=== PATIENT | female | born 1960 | race Two or more races ===

== ENCOUNTER 2016-04-01 21:56 | Inpatient (IN) | payer MEDICAID ==
[~2016-04-01] VITALS: Ht 154.9 cm; Wt 86.8 kg
[2016-04-01] MEDS ORDERED: cloNIDine HCL 0.1 MG TAB PO ONE (22:15)
[2016-04-01 23:05] LABS: Basophils # (auto) 0 uL; Basophils % (auto) 0.8 % (0.0-2.0); DEFINITIVE VIEW TRANSMISSION; Eosinophils # (auto) 0 uL; Eosinophils % (auto) 0.7 % (0.0-7.0); Hematocrit 35.6 % (36.0-46.0); Hemoglobin 11.7 g/dL (12.2-16.2); Lymphocytes # (auto) 1.1 uL; Lymphocytes % (auto) 19.8 % (10.0-50.0); Mean Corpuscular Hemoglobin 30.8 pg (28.0-32.0); Mean Corpuscular Hgb Conc. 32.9 g/dL (32.0-36.0); Mean Corpuscular Volume 93.5 fL (80.0-100.0); Mean Platelet Volume 9.3 fL (7.4-10.4); Monocytes # (auto) 0.7 uL; Monocytes % (auto) 13.9 % (0.0-12.0); Neutrophils # (auto) 3.4 uL; Neutrophils % (auto) 64.8 % (37.0-80.0); Platelet Count (auto) 61 10^3/uL (140-450); Red Cell Distribution Width 15.9 % (11.6-16.0); White Blood Cell 5.3 10^3/uL (4.4-10.8)
[2016-04-01 23:24] LABS: Partial Thromboplastin Time 26.4 sec (22.64-33.71); Prothrombin Time 11.9 sec (9.37-12.3)
[2016-04-01 23:30] LABS: Burr Cells MODERATE; Ovalocytes FEW; Platelet Estimate Decreased
[2016-04-01 23:31] LABS: INR 1.16 (0.9-1.15)
[2016-04-01 23:33] LABS: Albumin 3.1 g/dL (3.4-5.0); BUN/Creatinine Ratio 11.1; Magnesium 1.8 mg/dL (1.6-2.6)
[2016-04-01 23:37] LABS: Bilirubin, Total 0.9 mg/dL (0.2-1.0); Total Protein 7.1 g/dL (6.4-8.2)
[2016-04-01 23:41] LABS: Potassium 2.9 mmol/L (3.5-5.1)
[2016-04-02] VITALS (7 sets, daily range): BP systolic 121–140; BP diastolic 72–87
[2016-04-02] MEDS ORDERED: cloNIDine HCL 0.1 MG TAB ONE (00:41)
[2016-04-02] MEDS ORDERED: POTASSIUM CHL 20 Meq TABLET PO ONE (00:45)
[2016-04-02] MEDS ORDERED: ACETAMINOPHEN 325 MG TAB PO PRN (05:30)
[2016-04-02] MEDS ORDERED: ONDANSETRON HCL 4 MG/2 ML VIAL IV PRN (05:30)
[2016-04-02] MEDS ORDERED: TEMAZEPAM 15 MG CAP PO PRN (05:30)
[2016-04-02] MEDS ORDERED: HYDROcodone-ACET 5/325MG TAB PO PRN (05:30)
[2016-04-02] MEDS ORDERED: ENOXAPARIN SOD 100 MG/1 ML SYRINGE SC ONE (05:34)
[2016-04-02] MEDS ORDERED: ENOXAPARIN SOD 80 MG/0.8ML SYRINGE SC ONE (06:30)
[2016-04-02] MEDS: FAMOTIDINE 20 MG TAB PO SCH ×2 (10:51→22:00)
[2016-04-02] MEDS: amLODIPine BESYLATE 5 MG TAB PO SCH (10:51)
[2016-04-02] MEDS: BENAZEPRIL HCL 10 MG TAB PO SCH (10:51)
[2016-04-02] MEDS: METOPROLOL SUCCINATE XL 50 MG TAB PO SCH (10:51)
[2016-04-02] MEDS ORDERED: METO-158 PO (13:25)
[2016-04-02] MEDS ORDERED: AMLO5TAB2 PO (13:25)
[2016-04-02] MEDS ORDERED: SIMV10TA84 PO (13:25)
[2016-04-02] MEDS ORDERED: ESCI10TA53 PO (13:25)
[2016-04-02] MEDS ORDERED: BENA20TA4 PO (13:25)
[2016-04-02] MEDS ORDERED: IOHEXOL 350 MG/ML 100ML IJ ONE ×2 (14:31→17:49)
[2016-04-02] MEDS: ASPirin 81 mg TAB PO SCH (21:04)
[2016-04-02] MEDS ORDERED: PATIENTS OWN MEDICATION (simvastatin 20 MG) PO SCH ×2 (22:00)
[2016-04-02] MEDS ORDERED: ATORVASTATIN 20 MG TAB PO SCH (22:00)
[2016-04-02] MEDS ORDERED: PRAVASTATIN SODIUM 20 MG TAB PO SCH (22:00)
[2016-04-03 03:45] VITALS: BP 140/87
[2016-04-03 05:50] VITALS: BP 134/64
[2016-04-03 06:37] LABS: Basophils # (auto) 0 uL; Basophils % (auto) 0.7 % (0.0-2.0); Eosinophils # (auto) 0.1 uL; Eosinophils % (auto) 2.9 % (0.0-7.0); Hematocrit 35.9 % (36.0-46.0); Hemoglobin 11.6 g/dL (12.2-16.2); Lymphocytes # (auto) 1.1 uL; Lymphocytes % (auto) 27.5 % (10.0-50.0); Mean Corpuscular Hemoglobin 30.5 pg (28.0-32.0); Mean Corpuscular Hgb Conc. 32.4 g/dL (32.0-36.0); Mean Corpuscular Volume 94.1 fL (80.0-100.0); Mean Platelet Volume 9.8 fL (7.4-10.4); Monocytes # (auto) 0.6 uL; Monocytes % (auto) 15.6 % (0.0-12.0); Neutrophils # (auto) 2.2 uL; Neutrophils % (auto) 53.3 % (37.0-80.0); Platelet Count (auto) 67 10^3/uL (140-450); Red Cell Distribution Width 15.7 % (11.6-16.0)
[2016-04-03 08:00] VITALS: BP 140/88
[2016-04-03 08:53] VITALS: BP 138/82
[2016-04-03 09:06] LABS: Albumin 2.8 g/dL (3.4-5.0); Bilirubin, Total 1.2 mg/dL (0.2-1.0); Calcium 8.4 mg/dL (8.5-10.1); Magnesium 2.1 mg/dL (1.6-2.6); Potassium 3.4 mmol/L (3.5-5.1); Total Protein 6.5 g/dL (6.4-8.2)
[2016-04-03] MEDS: FAMOTIDINE 20 MG TAB PO SCH (10:00)
[2016-04-03] MEDS ORDERED: ENOXAPARIN SOD 40 MG/0.4 ML SYRINGE SC SCH (10:00)
[2016-04-03] MEDS: ASPirin 81 mg TAB PO SCH (10:17)
[2016-04-03] MEDS: METOPROLOL SUCCINATE XL 50 MG TAB PO SCH (10:18)
[2016-04-03] MEDS: amLODIPine BESYLATE 5 MG TAB PO SCH (10:18)
[2016-04-03] MEDS: BENAZEPRIL HCL 10 MG TAB PO SCH (10:18)
[2016-04-03] MEDS ORDERED: ASPI81CH43 PO (11:33)
[2016-04-03] MEDS ORDERED: POTASSIUM CHL 20 Meq TABLET PO ONE (11:45)
[2016-04-03 12:30] VITALS: BP 140/88
[2016-04-03 17:04] VITALS: BP 138/88
== END 2016-04-03 17:37 | disposition left against medical advice (07) | DRG 47 ==
LOC: ER 22:01 → OVERFLOW 22:02 → EAST 04-02 06:09
PROVIDERS: ADMIT Nurse Practitioner; ATTEND Internal Medicine
PROC: 5A09357 Assistance with Respiratory Ventilation, Less than 24 Consecutive Hours, Continuous Positive Airway Pressure (ICD-10-PCS; principal; 2016-04-02)
DX: G45.9 Transient cerebral ischemic attack, unspecified (principal); D69.6 Thrombocytopenia, unspecified; K74.60 Unspecified cirrhosis of liver; E78.5 Hyperlipidemia, unspecified; I10 Essential (primary) hypertension; Z53.21 Procedure and treatment not carried out due to patient leaving prior to being seen by health care provider; E87.6 Hypokalemia; F17.200 Nicotine dependence, unspecified, uncomplicated; Z82.49 Family history of ischemic heart disease and other diseases of the circulatory system; Z83.3 Family history of diabetes mellitus; Z84.89 Family history of other specified conditions; Z79.899 Other long term (current) drug therapy; Z91.14 Patient's other noncompliance with medication regimen; Z71.6 Tobacco abuse counseling
CPT/HCPCS: 36415; 70450; 70545; 70551; 71020; 71275; 80053; 80061; 83036; 83090; 83735; 84132; 84484; 85025; 85379; 85610; 85730; 93005; 93886; 94660

== ENCOUNTER 2018-02-08 18:46 | Inpatient (IN) | payer MEDICAID ==
[~2018-02-08] VITALS: Ht 154.9 cm; Wt 69.0 kg
[2018-02-08] MEDS ORDERED: ALBUTEROL SULF 2.5 MG/0.5ML(0.5%) NEB SOLN HHN ONE (20:00)
[2018-02-08] MEDS ORDERED: methylPREDNISolone SOD SUCC 125 MG/2 ML VL IV ONE (20:00)
[2018-02-08] MEDS ORDERED: IPRATROPIUM BROM 0.5 MG/2.5ML INH SOL HHN ONE (20:00)
[2018-02-08] MEDS ORDERED: cloNIDine HCL 0.1 MG TAB PO PRN (21:45)
[2018-02-08] MEDS ORDERED: ONDANSETRON HCL 4 MG/2 ML VIAL IV PRN (21:45)
[2018-02-08 22:08] LABS: Basophils # (auto) 0.1 uL; Basophils % (auto) 1.3 % (0.0-2.0); Eosinophils # (auto) 0.2 uL; Eosinophils % (auto) 2.9 % (0.0-7.0); Hemoglobin 10.6 g/dL (12.2-16.2); Lymphocytes # (auto) 0.8 uL; Lymphocytes % (auto) 14.2 % (10.0-50.0); Mean Corpuscular Hemoglobin 31.2 pg (28.0-32.0); Mean Corpuscular Hgb Conc. 34.1 g/dL (32.0-36.0); Mean Corpuscular Volume 91.3 fL (80.0-100.0); Monocytes # (auto) 0.7 uL; Monocytes % (auto) 13.1 % (0.0-12.0); Neutrophils # (auto) 3.7 uL; Neutrophils % (auto) 68.5 % (37.0-80.0); Platelet Count (auto) 90 10^3/uL (140-450); Red Cell Distribution Width 17.5 % (11.8-14.3); White Blood Cell 5.4 10^3/uL (4.4-10.8)
[2018-02-08 22:21] LABS: Alanine Aminotransferase 30 U/L (13-56); Albumin 2.4 g/dL (3.4-5.0); Anion Gap 3 (5-15); Blood Urea Nitrogen 15 mg/dL (7-18); Calcium 7.8 mg/dL (8.5-10.1); Carbon Dioxide 25 mmol/L (21-32); Chloride 110 mmol/L (98-107); Glucose 113 mg/dL (74-106); Potassium 3.4 mmol/L (3.5-5.1); Sodium 138 mmol/L (136-145)
[2018-02-08] MEDS: FAMOTIDINE 20 MG TAB PO SCH (22:22)
[2018-02-08 22:26] LABS: Alkaline Phosphatase 142 U/L (45-117); Aspartate Aminotransferase 44 U/L (15-37); BUN/Creatinine Ratio 24.2; GFR African American 128 mL/min; GFR Non-African American 105 mL/min; Total Protein 6.4 g/dL (6.4-8.2)
[2018-02-08] MEDS ORDERED: POTASSIUM CHL 20 Meq TABLET PO ONE (22:45)
[2018-02-08] MEDS ORDERED: IOHEXOL 350 MG/ML 100ML IJ ONE (22:50)
[2018-02-08 23:32] VITALS: BP 156/88
--- NOTE | 2018-02-09 02:20 | NUR ---
MS admit from ER ARTUR DIA admitted to tele/MS after SBAR received. Patient oriented to Yasmin Kohli, primary RN, unit, room, bed, and unit policies regarding patient care and visiting hours. Patient weighed by bed scale and encouraged to call if they need something. All questions and concerns addressed, patient verbalized understanding. Note: Patient is awake and alertx4, ambulates independently. Patient sitting up at bedside eating outside food (burrito). Patient is on room air no s/s of distress noted.
[2018-02-09 02:30] VITALS: BP 155/88
[2018-02-09 05:00] VITALS: BP 120/72
[2018-02-09] MEDS ORDERED: cefTRIAXone 1GM/50ML D5W 50 ML IV ONE ×2 (07:30→14:30)
[2018-02-09 09:00] VITALS: BP 137/75
[2018-02-09 09:09] LABS: Urine Bacteria NONE SEEN /hpf (None Seen); Urine Blood Negative /uL (Negative); Urine Mucus FEW (None Seen); Urine WBC 3 /hpf (0 - 5)
[2018-02-09 09:15] LABS: Urine Specific Gravity > 1.050 (1.001-1.035)
[2018-02-09] MEDS: FAMOTIDINE 20 MG TAB PO SCH ×2 (09:52→21:50)
[2018-02-09] MEDS: amLODIPine BESYLATE 5 MG TAB PO SCH (09:53)
--- NOTE | 2018-02-09 10:45 | NUR ---
patient not in room. belongings are in room.
--- NOTE | 2018-02-09 11:30 | NUR ---
ama smoking form signed by patient. states she went down to waiting room
[2018-02-09 13:00] VITALS: BP 156/91
[2018-02-09 17:00] VITALS: BP 154/83
[2018-02-09 18:28] LABS: INR 1.06 (0.9-1.15); Partial Thromboplastin Time 24.2 sec (23.78-33.04); Prothrombin Time 11.3 sec (9.27-12.13)
[2018-02-09] MEDS: ALBUTEROL SULF 2.5 MG/0.5ML(0.5%) NEB SOLN NEB PRN (19:31)
[2018-02-09 22:00] VITALS: BP 148/83
--- NOTE | 2018-02-10 00:30 | NUR ---
Assumed care of patient Pt currently resting in bed with no signs of distress. Bed is locked in the lowest position with the rails up x2 and call light is within reach. Will continue to monitor.
--- NOTE | 2018-02-10 00:30 | NUR ---
CARE ENDORSED TO KEILA RN, ALL QUESTIONS AND CONCERNS ADDRESSED. PATIENT IS RESTING IN BED WITH NO S/S OF DISTRESS NOTED.
[2018-02-10 05:24] VITALS: BP 134/87
[2018-02-10 06:17] LABS: Basophils # (auto) 0.1 uL; Eosinophils # (auto) 0.2 uL; Eosinophils % (auto) 3.1 % (0.0-7.0); Hematocrit 29.6 % (36.0-46.0); Hemoglobin 9.9 g/dL (12.2-16.2); Mean Corpuscular Hemoglobin 31.1 pg (28.0-32.0); Mean Corpuscular Hgb Conc. 33.6 g/dL (32.0-36.0); Mean Corpuscular Volume 92.7 fL (80.0-100.0); Monocytes # (auto) 0.8 uL; Monocytes % (auto) 12.7 % (0.0-12.0); Neutrophils # (auto) 4.2 uL; Neutrophils % (auto) 67.2 % (37.0-80.0); Platelet Count (auto) 100 10^3/uL (140-450); Red Cell Distribution Width 17.5 % (11.8-14.3); White Blood Cell 6.2 10^3/uL (4.4-10.8)
--- NOTE | 2018-02-10 07:43 | NUR ---
OPENING SHIFT NOTE ASSUMED CARE OF PATIENT. PATIENT AWAKE AND ALERT SITTING UP IN BED. NO S/S OF DISTRESS OR SOB NOTED. BED IN LOWEST LOCKED POSITION, CALL LIGHT WITHIN REACH. REVIEWED POC WITH PATIENT AND INSTRUCTED TO CALL FOR ASSIST NEEDED. WILL CONTINUE TO MONITOR.
[2018-02-10] MEDS: ALBUTEROL SULF 2.5 MG/0.5ML(0.5%) NEB SOLN NEB PRN (07:54)
[2018-02-10 09:00] VITALS: BP 134/79
[2018-02-10 09:36] LABS: Albumin 2.2 g/dL (3.4-5.0); Calcium 7.7 mg/dL (8.5-10.1)
[2018-02-10 09:41] LABS: BUN/Creatinine Ratio 34.5; Bilirubin, Total 0.7 mg/dL (0.2-1.0); Total Protein 6.1 g/dL (6.4-8.2)
[2018-02-10] MEDS: FAMOTIDINE 20 MG TAB PO SCH ×2 (10:32→22:31)
[2018-02-10] MEDS: amLODIPine BESYLATE 5 MG TAB PO SCH (10:32)
[2018-02-10] MEDS: cefTRIAXone 1GM/50ML D5W 50 ML IV SCH (10:32)
--- NOTE | 2018-02-10 12:00 | NUR ---
THORACENTESIS DONE IN ULTRASOUND BY DR REDMAN. PT TOLERATED WELL. VSS 125/75-89-16-94%. 1550 ML OF SANGUINOUS FLUID REMOVED AND SENT TO LAB. POST CXR DONE.
[2018-02-10 13:00] VITALS: BP 142/88
[2018-02-10 17:00] VITALS: BP 143/88
--- NOTE | 2018-02-10 19:10 | NUR ---
RT NOTE: PT ASSESSED FOR PRN MED NEB TX, PT ON ROOM AIR SPO2 96%, RR18 HR 108. BS CLEAR. PT DENIES SOB. PT NOTIFIED TO HAVE RT PAGED IF SOB OCCURS.
--- NOTE | 2018-02-10 19:15 | NUR ---
Opening Shift Note Assumed care of patient, awake and alert. No S/S of distress/SOB or pain. Instructed on POC and to call for assist as needed. Pt is currently laying in bed with rails up x2, bed is locked in the lowest position and call light is within reach. 22GA IV in the right hand flushes without discomfort. Will continue to monitor.
--- NOTE | 2018-02-10 19:24 | NUR ---
END OF SHIFT NOTE PATIENT RESTING COMFORTABLY IN BED AT THIS TIME. NO S/S OF DISTRESS OR SOB NOTED. BED IN LOWEST LOCKED POSITION, CALL LIGHT WITHIN REACH. WILL ENDORSE CARE TO NOC RN.
[2018-02-10 21:47] VITALS: BP 141/97
[2018-02-10] MEDS: ENOXAPARIN SOD 80 MG/0.8ML SYRINGE SC SCH (22:32)
[2018-02-11 05:11] VITALS: BP 129/77
--- NOTE | 2018-02-11 07:06 | NUR ---
RT NOTE: PT REFUSED TX. LUNG SOUNDS DIMINISHED T/O. SPO2 97 HR 80 RR 12. PT INSTRUCTED TO INFORM RN OF NEED FOR TX LATER IN SHIFT. Addendum: 02/11/18 at 1001 by AMADOR PICKERING, RT RT PT ON RA
[2018-02-11] MEDS: ALBUTEROL SULF 2.5 MG/0.5ML(0.5%) NEB SOLN NEB PRN (07:15)
--- NOTE | 2018-02-11 07:50 | NUR ---
OPENING SHIFT NOTE ASSUMED CARE OF PATIENT. PATIENT AWAKE AND ALERT SITTING UP IN BED. NO S/S OF DISTRESS NOTED, PATIENT DENIES SOB AT THIS TIME. REVIEWED POC WITH PATIENT AND INSTRUCTED TO CALL FOR ASSIST NEEDED. BED IN LOWEST LOCKED POSITION, CALL LIGHT WITHIN REACH. CONTINUING TO MONITOR.
[2018-02-11 08:27] VITALS: BP 120/73
[2018-02-11] MEDS: cefTRIAXone 1GM/50ML D5W 50 ML IV SCH (09:49)
[2018-02-11] MEDS: amLODIPine BESYLATE 5 MG TAB PO SCH (09:49)
[2018-02-11] MEDS: ENOXAPARIN SOD 80 MG/0.8ML SYRINGE SC SCH ×2 (09:49→22:00)
[2018-02-11] MEDS: FAMOTIDINE 20 MG TAB PO SCH ×2 (09:49→21:57)
[2018-02-11 12:29] VITALS: BP 137/84
[2018-02-11 16:50] VITALS: BP 136/83
--- NOTE | 2018-02-11 18:35 | NUR ---
RT NOTE: PT ASSESSED FOR PRN MED NEB TX, PT ON ROOM AIR SPO2 96%, RR18 HR 84. BS DECREASED. PT DENIES SOB. PT NOTIFIED TO HAVE RT PAGED IF SOB OCCURS.
--- NOTE | 2018-02-11 18:37 | NUR ---
ROOM CHANGE CHANGED ROOMS AT THIS TIME. ALL BELONGINGS MOVED FROM ROOM 221A TO 220B. PATIENT AMBULATED SELF TO 220B AND TOLERATED WELL. CONTINUING TO MONITOR.
--- NOTE | 2018-02-11 18:38 | NUR ---
END OF SHIFT NOTE PATIENT AWAKE AND ALERT SITTING UP IN BED. NO S/S OF DISTRESS OR SOB NOTED. BED IN LOWEST LOCKED POSITION, CALL LIGHT WITHIN REACH. WILL ENDORSE CARE TO NOC RN.
[2018-02-11 22:00] VITALS: BP 119/67
[2018-02-12 03:34] VITALS: BP 119/67
[2018-02-12 05:00] VITALS: BP 144/89
[2018-02-12 06:59] LABS: Basophils # (auto) 0 uL; Basophils % (auto) 0.8 % (0.0-2.0); Eosinophils # (auto) 0.3 uL; Eosinophils % (auto) 8.8 % (0.0-7.0); Hematocrit 29.9 % (36.0-46.0); Hemoglobin 10.1 g/dL (12.2-16.2); Lymphocytes # (auto) 0.6 uL; Lymphocytes % (auto) 16.3 % (10.0-50.0); Mean Corpuscular Hgb Conc. 33.9 g/dL (32.0-36.0); Mean Corpuscular Volume 91.4 fL (80.0-100.0); Monocytes # (auto) 0.6 uL; Monocytes % (auto) 15.3 % (0.0-12.0); Neutrophils # (auto) 2.2 uL; Neutrophils % (auto) 58.8 % (37.0-80.0); Nucleated Red Blood Cells % 0.2 %; Platelet Count (auto) 91 10^3/uL (140-450); Red Blood Cells 3.27 10^6/uL (4.0-5.20); White Blood Cell 3.8 10^3/uL (4.4-10.8)
[2018-02-12 07:47] LABS: Albumin 2.1 g/dL (3.4-5.0); BUN/Creatinine Ratio 29.6; Calcium 7.5 mg/dL (8.5-10.1); Potassium 3.9 mmol/L (3.5-5.1)
[2018-02-12 07:50] LABS: Bilirubin, Total 0.6 mg/dL (0.2-1.0); Total Protein 5.7 g/dL (6.4-8.2)
[2018-02-12 09:00] VITALS: BP 126/85
[2018-02-12] MEDS: cefTRIAXone 1GM/50ML D5W 50 ML IV SCH (09:51)
[2018-02-12] MEDS: amLODIPine BESYLATE 5 MG TAB PO SCH (09:52)
[2018-02-12] MEDS: ENOXAPARIN SOD 80 MG/0.8ML SYRINGE SC SCH (09:52)
[2018-02-12] MEDS: FAMOTIDINE 20 MG TAB PO SCH ×2 (09:52→21:30)
[2018-02-12 13:00] VITALS: BP 113/78
--- NOTE | 2018-02-12 14:45 | NUR ---
Nutrition Assessment Notes please see attached link for complete assessment Est. Needs BW [id number] kcal (23-25 kcal/kgBW), 66-85 gms pro (1.0-1.3 gms/kgBW d/t severe hypoalbuminemia). Will continue to monitor pertinent labs and reassess nutrient need prn Addendum: 02/12/18 at [address] Amended: Links added.
[2018-02-12 17:00] VITALS: BP 144/95
--- NOTE | 2018-02-12 18:30 | NUR ---
Respiratory note: ASSESSED PT FOR PRN MED NEB AT THIS TIME, PT DENIES SOB AT THIS TIME, NO RESP DISTRESS NOTED, NO TX INDICATED, PULSE OX 96% ON RA, HR 95, RR 18, BILATERAL BS CLEAR.
--- NOTE | 2018-02-12 18:59 | NUR ---
END OF SHIFT NOTE PATIENT RESTING COMFORTABLY IN BED. NO S/S OF DISTRESS OR SOB NOTED. BED IN LOWEST LOCKED POSITION, CALL LIGHT WITHIN REACH. WILL ENDORSE CARE TO NOC RN.
--- NOTE | 2018-02-12 19:45 | NUR ---
open note assumed care of pt. upon entering room pt awake and alert. family at bedside. pt denied any pain. no s/s distress noted or expressed. pt updated on plan of care. no further questions or concerns at this time. call light in reach. will continue to monitor.
[2018-02-12 21:24] VITALS: BP 145/89
[2018-02-13 05:00] VITALS: BP 130/71
--- NOTE | 2018-02-13 07:50 | NUR ---
Opening Shift Note Assumed care of patient, awake and alert and oriented x4. No S/S of distress/SOB or pain. Lungs sounds auscultated and noted to be clear bilaterally. Instructed on POC and to call for assist PRN, will continue to monitor for changes.
[2018-02-13 08:27] VITALS: BP 125/57
[2018-02-13] MEDS: cefTRIAXone 1GM/50ML D5W 50 ML IV SCH (09:11)
[2018-02-13] MEDS: FAMOTIDINE 20 MG TAB PO SCH ×2 (09:11→21:38)
[2018-02-13] MEDS: amLODIPine BESYLATE 5 MG TAB PO SCH (09:12)
[2018-02-13 13:00] VITALS: BP 139/74
--- NOTE | 2018-02-13 14:00 | NUR ---
Respiratory note: PRN MEDNEB CHECK. PT IN NO RESPIRATORY DISTRESS. SPO2 ON ROOM AIR 96% HR 100 RR 16 B/S CLEAR. PT AWARE TO CALL RN AND HAVE THEM PAGE RT IF THEY BECOME SOB.
[2018-02-13 16:53] VITALS: BP 118/74
--- NOTE | 2018-02-13 19:00 | NUR ---
Patient care and report handed off to Dangelo ORR.
[2018-02-13] MEDS: ALBUTEROL SULF 2.5 MG/0.5ML(0.5%) NEB SOLN NEB PRN (19:44)
--- NOTE | 2018-02-13 19:56 | NUR ---
OPENING NOTE RECEIVED REPORT FROM DAYSHIFT RN. ASSUMING ROLE OF CARE OF PATIENT AT THIS TIME. PATIENT SHOWING NO SIGN OF DISTRESS OR PAIN BUT PATIENT STATES THAT THEY FEEL SHORT OF BREATH. RT PAGED FOR BREATHING TREATMENT. PATIENT EDUCATED ON PLAN OF CARE FOR THE NIGHT. PATIENT VERBALIZED UNDERSTANDING. BED LOWERED, CALL LIGHT WITHIN REACH, AND PATIENT WILL BE ROUNDED ON EVERY HOUR AND NEEDED.
[2018-02-13 22:00] VITALS: BP 149/77
--- NOTE | 2018-02-13 22:05 | NUR ---
TEMP RECHECKED PATIENT'S TEMPERATURE WAS 100.8. PATIENT IS STABLE AT THIS TIME AND DENYING ANY PAIN AND APPEARS STABLE. PATIENT GIVEN COOLING MEASURES AT THIS TIME. RECHECK ON TEMP SHOWS 99.5. WILL CONTINUE TO MONITOR.
[2018-02-14 05:00] VITALS: BP 104/74
[2018-02-14] MEDS: ALBUTEROL SULF 2.5 MG/0.5ML(0.5%) NEB SOLN NEB PRN (06:50)
--- NOTE | 2018-02-14 07:50 | NUR ---
Received report from night KIRBY Pierson. Patient resting in bed, bed in low pos., locked, rails up x 2
[2018-02-14 09:27] VITALS: BP 114/67
[2018-02-14] MEDS: cefTRIAXone 1GM/50ML D5W 50 ML IV SCH (09:29)
[2018-02-14] MEDS: FAMOTIDINE 20 MG TAB PO SCH ×2 (09:33→21:27)
[2018-02-14] MEDS: amLODIPine BESYLATE 5 MG TAB PO SCH (09:34)
[2018-02-14 13:12] VITALS: BP 117/73
--- NOTE | 2018-02-14 15:26 | NUR ---
ELEVATED TEMP TEMP OF 100.6. CALLED [employer] SUPERINTENDENT AND LEFT MESSAGE ON TELEPHONE OF DR. SAN FOR TYLENOL
[2018-02-14 16:20] VITALS: BP 122/71
--- NOTE | 2018-02-14 16:31 | NUR ---
IV OUTDATED RESTARTED NEW IF TO LEFT FOREARM #22.
[2018-02-14] MEDS ORDERED: ACETAMINOPHEN 325 MG TAB PO PRN (18:30)
--- NOTE | 2018-02-14 19:25 | NUR ---
Shift report given to night KIRBY Pierson. Pt resting in bed with family at bedside. Bed in low position, locked, rails up x 2, call light in reach.
--- NOTE | 2018-02-14 20:00 | NUR ---
OPENING NOTE RECEIVED REPORT FROM DAYSHIFT RN. ASSUMING ROLE OF CARE OF PATIENT AT THIS TIME. PATIENT SHOWING NO SIGN OF DISTRESS, SHORTNESS OF BREATH, AND PATIENT DENIES ANY PAIN AT THIS TIME. PATIENT EDUCATED ON PLAN OF CARE OF FOR THE NIGHT AND PATIENT VERBALIZED UNDERSTANDING. BED LOWERED, CALL LIGHT WITHIN REACH, AND PATIENT WILL BE ROUNDED ON EVERY HOUR AND NEEDED.
--- NOTE | 2018-02-14 21:10 | NUR ---
RT NOTE: PT ASSESSED BY RT @ THIS TIME. PRN TX NOT INDICATED @ THIS TIME. SPO2 95% ON ROOM AIR, HR 100, DIMINISHED BS NOTED. NO SOB OR DISTRESS @ THIS TIME. PT WILL CALL FOR RT IF TX NEEDED.
[2018-02-14 22:00] VITALS: BP 129/84
--- NOTE | 2018-02-14 22:04 | NUR ---
RECEIVED CALL FROM LAB. PER COMPLIANCE CLERK, MD MEDEIROS REQUESTED AN LBI TEST FOR PATIENT. COMPLIANCE CLERK STATED THAT THE TEST WILL BE DONE BUT MUST BE SENT OUT AND RESULTS WILL NOT BE READY UNTIL SATURDAY. WILL ENDORSE TO DAYSHIFT RN.
--- NOTE | 2018-02-14 23:06 | NUR ---
CONTACTED LAB INFORMED LAB THAT MD MEDEIROS WOULD NOT BE BACK UNTIL THE TO RESUME CARE PER MD REPORT. WAS ASKED BY LAB TO LEAVE A NOTE FOR DAYSHIFT AND FOR THE MD SO TO MAKE THEM AWARE OF THE DELAY IN RESULTS. WILL ENDORSE TO DAYSHIFT.
[2018-02-15 03:32] VITALS: BP 129/84
[2018-02-15 05:00] VITALS: BP 100/62
--- NOTE | 2018-02-15 07:25 | NUR ---
Shift report received fromliberty Pierson. Bed in low position, locked, rails up x 2, call light in reach. IV infusing well to left forearm.
[2018-02-15 08:30] VITALS: BP_SYST 115; BP_SYST 127; BP_DIAS 60; BP_DIAS 68
[2018-02-15] MEDS: cefTRIAXone 1GM/50ML D5W 50 ML IV SCH (10:12)
[2018-02-15] MEDS: amLODIPine BESYLATE 5 MG TAB PO SCH (10:12)
[2018-02-15] MEDS: FAMOTIDINE 20 MG TAB PO SCH ×2 (10:12→21:56)
[2018-02-15 12:47] VITALS: BP 134/73
--- NOTE | 2018-02-15 12:56 | NUR ---
Nutrition Follow-up Notes Wt.: 72.9 kg Pt was sleeping with no family by beside. 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 pt with no distress noted currently on hepatic diet with adequate PO of 100% x 5 per RN doc Est. Needs BW [id number] kcal (23-25 kcal/kgBW), 66-85 gms pro (1.0-1.3 gms/kgBW d/t severe hypoalbuminemia). Will continue to monitor pertinent labs and reassess nutrient need prn Labs: CA 7.5 L, ALB 2.1 L. Skin: Colt scale 16, mod risk skin intact per duco polisher. GI: Pt had 1 BM yesterday per duco polisher. PES: Altered nutrition related lab values r/t current chronic medical condition aeb hypocalcemia, severe hypoalb Will continue to monitor NPO status, skin status, pertinent labs and weight trend. F/u in 3-5 days. Rec.: 1.) consider 2 gm na diet as pt with no ammonia levels done. 2) consider prostat 1 packet daily. 3) continue current plan of care
--- NOTE | 2018-02-15 15:48 | NUR ---
ASSESSED PT FOR PRN HHN BREATHING TX, PT ON RA WITH A SPO2 97% WITH A HR 82, RR 16 WITH CLEAR BS. FAMILY MEMBER AT BEDSIDE. NO SOB, NO RESPIRATORY DISTRESS. WILL CONTINUE TO MONITOR PT.
[2018-02-15 16:46] VITALS: BP 128/75
--- NOTE | 2018-02-15 19:30 | NUR ---
Shift report given to night RN Jerry. Pt taking a shower with fiance at bedside. Bed in low position, locked, rails up x 2, call light in reach.
--- NOTE | 2018-02-15 19:31 | NUR ---
Opening Shift Note Assumed care of patient, awake and alert. at the bedside. No S/S of distress/SOB or pain. Instructed on POC and to call for assist PRN, will continue to monitor for changes Q1hr and PRN.
--- NOTE | 2018-02-15 21:00 | NUR ---
Respiratory note: PT ASSESSED FOR PRN MEDNEB TX. HR 94, RR 18, SPO2 97% ON R/A, BS CLEAR T/O. NO SIGNS OF ANY RESPIRATORY DISTRESS NOTED. ADVISED PT TO PLEASE CALL IF NEEDED.
[2018-02-15 22:00] VITALS: BP 133/79
[2018-02-15] MEDS: TEMAZEPAM 15 MG CAP PO PRN (22:25)
[2018-02-16 05:00] VITALS: BP 134/77
[2018-02-16 06:08] LABS: Hematocrit 27.5 % (36.0-46.0); Hemoglobin 9.3 g/dL (12.2-16.2); Mean Corpuscular Hemoglobin 30.4 pg (28.0-32.0); Mean Corpuscular Hgb Conc. 33.9 g/dL (32.0-36.0); Mean Corpuscular Volume 89.6 fL (80.0-100.0); Platelet Count (auto) 108 10^3/uL (140-450); Red Blood Cells 3.07 10^6/uL (4.0-5.20); Red Cell Distribution Width 16.4 % (11.8-14.3); White Blood Cell 4.3 10^3/uL (4.4-10.8)
[2018-02-16 06:15] LABS: Calcium 7.6 mg/dL (8.5-10.1); Potassium 3.5 mmol/L (3.5-5.1)
[2018-02-16 06:18] LABS: BUN/Creatinine Ratio 34.1
[2018-02-16 06:26] LABS: Basophils % (manual) 0 (0.0-2.0); Blast Cells 0; Metamyelocytes % 0; Myelocytes % 0; Promyelocytes % 0; Reactive Lymphocytes 0
[2018-02-16 07:01] LABS: Band Neutrophils % (manual) 1; Eosinophils % (manual) 6 (0-7); Lymphocytes % (manual) 13 (10.0-50.0); Monocytes % (manual) 21 (0-12)
--- NOTE | 2018-02-16 07:20 | NUR ---
OPENING NOTE Received shift report from night KIRBY Edwards. Pt out of bed, with all blinds opened walking about the room. Denies any discomfort. Bed in low pos., wheels locked, rails up x 2, call light in reach.
--- NOTE | 2018-02-16 08:12 | NUR ---
MD PHONE CALL DR PRESLEY CALLED AND SPOKE WITH ME. I READ HIM THE RECENT CT SCAN AND HE ORDERED A PULMONARY CONSULT FOR A BRONCOSCOPY BEFORE DR PRESLEY CAN DO ANY BIOPSY. THE ORDER WAS PLACED.
[2018-02-16 08:30] VITALS: BP 133/72
[2018-02-16] MEDS: cefTRIAXone 1GM/50ML D5W 50 ML IV SCH (09:14)
[2018-02-16] MEDS: amLODIPine BESYLATE 5 MG TAB PO SCH (09:20)
[2018-02-16] MEDS: FAMOTIDINE 20 MG TAB PO SCH ×2 (09:20→21:48)
[2018-02-16 12:13] VITALS: BP 128/75
[2018-02-16 17:23] VITALS: BP 128/76
--- NOTE | 2018-02-16 19:24 | NUR ---
Shift report given to night RN Jerry. The patient's fiance is in the room. Bed in low position, locked, rails up x 2, call light in reach.
--- NOTE | 2018-02-16 19:25 | NUR ---
Opening Shift Note Assumed care of patient, awake and alert.Family on bedside. No S/S of distress/SOB or pain. Instructed on POC and to call for assist PRN, will continue to monitor for changes Q1hr and PRN.
[2018-02-16 21:30] VITALS: BP 121/70
[2018-02-16] MEDS: TEMAZEPAM 15 MG CAP PO PRN (22:12)
[2018-02-17] VITALS (7 sets, daily range): BP systolic 18–130; BP diastolic 69–85
[2018-02-17 06:17] LABS: Basophils # (auto) 0.1 uL; Basophils % (auto) 3.3 % (0.0-2.0); Eosinophils # (auto) 0.2 uL; Eosinophils % (auto) 4.5 % (0.0-7.0); Hematocrit 27.8 % (36.0-46.0); Hemoglobin 9.4 g/dL (12.2-16.2); Lymphocytes # (auto) 0.5 uL; Lymphocytes % (auto) 16.1 % (10.0-50.0); Mean Corpuscular Hemoglobin 30.5 pg (28.0-32.0); Mean Corpuscular Hgb Conc. 33.7 g/dL (32.0-36.0); Mean Corpuscular Volume 90.4 fL (80.0-100.0); Monocytes # (auto) 0.6 uL; Monocytes % (auto) 17.8 % (0.0-12.0); Neutrophils % (auto) 58.3 % (37.0-80.0); Platelet Count (auto) 113 10^3/uL (140-450); Red Blood Cells 3.07 10^6/uL (4.0-5.20); Red Cell Distribution Width 16.6 % (11.8-14.3); White Blood Cell 3.4 10^3/uL (4.4-10.8)
[2018-02-17 06:29] LABS: BUN/Creatinine Ratio 41.5; Calcium 7.6 mg/dL (8.5-10.1); Potassium 3.5 mmol/L (3.5-5.1)
--- NOTE | 2018-02-17 07:15 | NUR ---
Opening Shift Note Received report from Jerry ORR. Assumed care of patient, awake and alert. No S/S of distress/SOB or pain. Instructed on POC and to call for assist PRN, will continue to monitor for changes Q1hr and PRN.
[2018-02-17] MEDS: FAMOTIDINE 20 MG TAB PO SCH ×2 (09:19→21:54)
[2018-02-17] MEDS: cefTRIAXone 1GM/50ML D5W 50 ML IV SCH (09:19)
[2018-02-17] MEDS: amLODIPine BESYLATE 5 MG TAB PO SCH (09:20)
--- NOTE | 2018-02-17 15:45 | NUR ---
Dr. Sandhu at bedside.
[2018-02-17] MEDS: Ensure Enlive Strawberry 8oz Bottle PO SCH (17:04)
[2018-02-18 05:00] VITALS: BP_SYST 146; BP_SYST 96; BP_DIAS 58; BP_DIAS 79
[2018-02-18 06:00] LABS: Basophils # (auto) 0 uL; Basophils % (auto) 1.3 % (0.0-2.0); Eosinophils # (auto) 0.2 uL; Eosinophils % (auto) 4.6 % (0.0-7.0); Hematocrit 27.6 % (36.0-46.0); Hemoglobin 9.4 g/dL (12.2-16.2); Lymphocytes # (auto) 0.6 uL; Lymphocytes % (auto) 18.2 % (10.0-50.0); Mean Corpuscular Hemoglobin 30.8 pg (28.0-32.0); Mean Corpuscular Hgb Conc. 34.2 g/dL (32.0-36.0); Mean Corpuscular Volume 90.1 fL (80.0-100.0); Monocytes # (auto) 0.6 uL; Monocytes % (auto) 16.4 % (0.0-12.0); Neutrophils # (auto) 2.1 uL; Neutrophils % (auto) 59.5 % (37.0-80.0); Nucleated Red Blood Cells % 0.2 %; Platelet Count (auto) 115 10^3/uL (140-450); Red Blood Cells 3.06 10^6/uL (4.0-5.20); Red Cell Distribution Width 16.5 % (11.8-14.3); White Blood Cell 3.5 10^3/uL (4.4-10.8)
[2018-02-18 06:18] LABS: BUN/Creatinine Ratio 32.6; Calcium 7.6 mg/dL (8.5-10.1); Potassium 3.8 mmol/L (3.5-5.1)
--- NOTE | 2018-02-18 07:05 | NUR ---
Morning note Report received and bedside handoff completed. Patient observed resting in bed without any S/S of distress. Patient oriented to this RN and POC discussed. Patient verbalized that she would like a breathing treatment now, respiratory paged. Patient verbalized understanding to call if needing assistance.
[2018-02-18] MEDS: Ensure Enlive Strawberry 8oz Bottle PO SCH ×3 (08:00→13:23)
[2018-02-18 09:08] VITALS: BP 130/77
[2018-02-18] MEDS: cefTRIAXone 1GM/50ML D5W 50 ML IV SCH (09:24)
[2018-02-18] MEDS: FAMOTIDINE 20 MG TAB PO SCH ×2 (09:25→22:05)
[2018-02-18] MEDS: amLODIPine BESYLATE 5 MG TAB PO SCH (09:25)
--- NOTE | 2018-02-18 11:19 | NUR ---
rounding Dr. Sandhu rounding on patient, however patient in shower. stated he will come back to see the patient in a bit.
--- NOTE | 2018-02-18 11:56 | NUR ---
returned Dr. Sandhu returned to patient's bedside, discussed with patient that she will be staying at this point until tomorrow at least for Dr. Keys and Mohinder to decide on POC. Patient verbalized understanding.
[2018-02-18] MEDS ORDERED: LACTULOSE 20Gm/30ML SOLN PO ONE (12:15)
[2018-02-18 13:00] VITALS: BP 125/78
--- NOTE | 2018-02-18 15:09 | NUR ---
Nutrition Follow-up Notes Wt.: 68.1 kg Pt was sleeping with no family by beside. 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 pt with no distress noted currently on hepatic diet along with Glucerna 1 carton tid with adequate PO of > 75% x6 per RN doc Est. Needs BW [id number] kcal (23-25 kcal/kgBW), 39-52 gms pro (0.6-0.8 gms/kgBW d/t severe hypoalbuminemia). Will continue to monitor pertinent labs and reassess nutrient need prn. reassessed as pt with elev ammonia Labs: CA 7.6 L, AMMONIA 52 H, ALB 2.1 L. Skin: Colt scale 17 mod risk skin intact per greenhouse florist. GI: Pt had 1 BM today per greenhouse florist. PES: Altered nutrition related lab values r/t current chronic medical condition aeb hypocalcemia, severe hypoalb Will continue to monitor PO intake, skin status, pertinent labs and weight trend. F/u in 3-5 days. Rec.: 1.) Consider nutrihep 1 carton bid instead of ensure enlive as pt with elev ammonia. 2) consider prostat 1 packet daily as ammonia improve. 3) continue current plan of care
[2018-02-18 17:18] VITALS: BP 139/79
--- NOTE | 2018-02-18 19:45 | NUR ---
Opening Shift Note Assumed care of patient, awake and alert oriented x4. No S/S of distress/SOB or pain noted. Bed is in lowest locked position with bed rails up x2 and call light is within reach of the patient. Instructed on POC and to call for assist PRN.
[2018-02-18 21:46] VITALS: BP 139/81
[2018-02-19 05:00] VITALS: BP 122/71
[2018-02-19 05:33] LABS: Basophils # (auto) 0.1 uL; Basophils % (auto) 1.3 % (0.0-2.0); Eosinophils # (auto) 0.2 uL; Eosinophils % (auto) 4.6 % (0.0-7.0); Hematocrit 28.2 % (36.0-46.0); Hemoglobin 9.4 g/dL (12.2-16.2); Lymphocytes # (auto) 0.6 uL; Lymphocytes % (auto) 16.6 % (10.0-50.0); Mean Corpuscular Hemoglobin 30.5 pg (28.0-32.0); Mean Corpuscular Hgb Conc. 33.5 g/dL (32.0-36.0); Mean Corpuscular Volume 91.1 fL (80.0-100.0); Monocytes # (auto) 0.5 uL; Monocytes % (auto) 12.2 % (0.0-12.0); Neutrophils # (auto) 2.5 uL; Neutrophils % (auto) 65.3 % (37.0-80.0); Nucleated Red Blood Cells % 0.1 %; Platelet Count (auto) 107 10^3/uL (140-450); Red Cell Distribution Width 16.5 % (11.8-14.3); White Blood Cell 3.9 10^3/uL (4.4-10.8)
[2018-02-19 05:45] LABS: Albumin 2.2 g/dL (3.4-5.0); BUN/Creatinine Ratio 28.8; Calcium 7.7 mg/dL (8.5-10.1); Potassium 4.3 mmol/L (3.5-5.1)
[2018-02-19 05:48] LABS: Bilirubin, Total 0.5 mg/dL (0.2-1.0)
--- NOTE | 2018-02-19 07:40 | NUR ---
Morning note Report received and bedside handoff completed. Patient observed awake, alert, and without any S/S of distress. Patient reoriented to this RN and POC discussed. Patient states she is ready to find out what is the plan with Dr. Keys and asked when he would be by. This RN explained to patient that staff can not give a specific time frame since physicians come throughout the day when available. Patient verbalized understanding and knows to call if needing assistance.
--- NOTE | 2018-02-19 07:43 | NUR ---
Closing note: Patient is awake alert oriented x4 with no S/S of distress, SOB or pain noted. Bed is in lowest locked position with bed rails up x2 and call light is within reach of the patient. Care endorsed to day shift nurse.
[2018-02-19] MEDS: Ensure Enlive Strawberry 8oz Bottle PO SCH ×2 (08:00→12:00)
[2018-02-19] MEDS: FAMOTIDINE 20 MG TAB PO SCH ×2 (09:07→21:59)
[2018-02-19] MEDS: amLODIPine BESYLATE 5 MG TAB PO SCH (09:08)
[2018-02-19] MEDS: LACTULOSE 20Gm/30ML SOLN PO SCH (09:08)
[2018-02-19 09:12] VITALS: BP 123/77
--- NOTE | 2018-02-19 09:42 | NUR ---
MD rounded Dr. Keys at bedside, discussed POC with patient regarding obtaining a chest xray prior to deciding on the bronchoscopy. Patient verbalized understanding. MD stated he would review the results later and come back to speak to patient.
--- NOTE | 2018-02-19 09:45 | NUR ---
Transported to radiology Patient transported to radiology department for chest xray in wheelchair with manager of radiology. No current S/S of distress noted.
--- NOTE | 2018-02-19 09:52 | NUR ---
Back to room Patient back to room from radiology, no current S/S of distress noted.
[2018-02-19 13:00] VITALS: BP 134/81
[2018-02-19 17:00] VITALS: BP 136/83
--- NOTE | 2018-02-19 17:58 | NUR ---
Paged Dr. Keys paged per patient request since he has yet to return as promised with POC regarding bronchoscopy.
[2018-02-19] MEDS: NutriHep RTU 240 mL Unflavored PO SCH (18:00)
[2018-02-19] MEDS ORDERED: Ensure Enlive Strawberry 8oz Bottle PO SCH (18:00)
--- NOTE | 2018-02-19 18:20 | NUR ---
MD call back Dr. Patterson called this RN back in regards to patient's concern about diet and possible bronchoscopy tomorrow. MD stated to make patient have clear liquid diet for breakfast and then NPO after. He stated he will come by in the morning and discuss the procedure with the patient. Patient updated on this and verbalized understanding.
[2018-02-19 22:00] VITALS: BP 115/65
[2018-02-20 05:41] VITALS: BP 108/72
--- NOTE | 2018-02-20 08:00 | NUR ---
RECEIVED PATIENT ALERT AND ORIENTED X4, NOT IN DISTRESS, CLEAR LS IN BILATERAL AND DEMISED SOUND IN LOWER LUNG LOBES, RR=18 SAT=97% RA, DENIED SOB OR CHEST PAIN , HEART RATE=84, ABDOMEN SOFT WITH ACTIVE BS, LAST BM THIS MORNING REPORTED, TOLERATED 100% OF CLEAR LIQUID BREAK FAST TRAY ORDERED, WILL KEEP NPO FOR PENDING BRONCHOSCOPY TODAY ORDERED, SKIN INTACT WARM TO TOUCH, SITTING ON BED DANGLING, WILL CONTINUE MONITORING.
[2018-02-20 09:00] VITALS: BP 127/77
[2018-02-20] MEDS: LACTULOSE 20Gm/30ML SOLN PO SCH (09:58)
[2018-02-20] MEDS: amLODIPine BESYLATE 5 MG TAB PO SCH (09:59)
[2018-02-20] MEDS: FAMOTIDINE 20 MG TAB PO SCH ×2 (09:59→21:30)
[2018-02-20] MEDS ORDERED: LIDOCAINE HCL 2 % INJ 2ML MPF NEB ONE (10:00)
[2018-02-20] MEDS ORDERED: MEPERIDINE HCL (25 MG/ML) 1ML VIAL IM ONE (10:00)
--- NOTE | 2018-02-20 11:01 | NUR ---
NOT IN DISTRESS, AMBULATED IN THE ROOM, TOOK A SHOWER AND EXERCISED, TOLERATED WELL, OR WAS CONTACTED FOR BRONCHOSCOPY TIMING FOLLOW UP, SCHEDULE TIME= 1300 REPORTED, WILL CONTINUE MONITORING.
[2018-02-20] MEDS ORDERED: FLUMAZENIL 0.1 MG/ML INJ 10ML MDV IV ONE (12:35)
[2018-02-20] MEDS ORDERED: NALOXONE HCL 0.4 MG/ML VIAL ONE (12:35)
[2018-02-20] MEDS ORDERED: SODIUM CHLORIDE LOCK 30 ML ONE (12:36)
[2018-02-20] MEDS ORDERED: LIDOCAINE 2% (LOCAL ANESTH.) PF 5ml SDV ONE (12:36)
[2018-02-20] MEDS ORDERED: EPINEPHrine HCL 1 MG/1 ML AMP ONE (12:36)
[2018-02-20] MEDS ORDERED: LIDOCAINE 2% JELLY 11ml (GLYDO) ONE (12:37)
[2018-02-20] MEDS ORDERED: fentaNYL CITRATE 100 MCG/2 ML VL ONE (12:37)
[2018-02-20 13:00] VITALS: BP 120/72
[2018-02-20] MEDS: MIDAZOLAM HCL 5 MG/ML-1ML VIAL ONE ×4 (13:11→13:16)
--- NOTE | 2018-02-20 13:50 | NUR ---
DEMEROL IM X1 WAS GIVEN ORDERED, WENT ON BED OUT OF UNIT TO OR FOR BRONCHOSCOPY, WILL CONTINUE FOLLOW UP.
--- NOTE | 2018-02-20 14:30 | NUR ---
CAME BACK FROM OR, ALERT AND ORIENTED, NOT IN DISTRESS, T=98.1 RR=18 SAT=95% P=74 NC=511/78, DENIED PAIN, RESTING ON BED, DR. ZAFAR WAS CALLED FOR DIET CLARIFICATION FOLLOW UP, WAITING FOR CALL BACK.
[2018-02-20 16:49] VITALS: BP 106/63
--- NOTE | 2018-02-20 19:06 | NUR ---
NOT IN DISTRESS, DENIED PAIN, SITTING ON BED, TALKING TO THE VISITOR, REPORT WAS GIVEN TO THE LAUNCH STEWARD RN.
[2018-02-20 20:00] VITALS: BP 131/58
[2018-02-20 22:00] VITALS: BP 131/58
[2018-02-21 05:35] VITALS: BP 113/74
--- NOTE | 2018-02-21 07:00 | NUR ---
Opening Shift Note Assumed care of patient, awake and alert. No S/S of distress/SOB or pain. Instructed on POC and to call for assist PRN, will continue to monitor for changes Q1hr and PRN.
[2018-02-21 08:00] VITALS: BP 126/76
[2018-02-21] MEDS: NutriHep RTU 240 mL Unflavored PO SCH ×3 (08:00→10:01)
--- NOTE | 2018-02-21 08:30 | NUR ---
spoke with Dr. Mendoza. clarified the plan of care for the patient as it relates to her npo status and any upcoming procedures. Dr. Mendoza confirmed that a procedure is not scheduled for the patient today and the patent is okay to eat.
[2018-02-21 08:44] VITALS: BP 126/76
[2018-02-21] MEDS: LACTULOSE 20Gm/30ML SOLN PO SCH (10:00)
[2018-02-21] MEDS: amLODIPine BESYLATE 5 MG TAB PO SCH (10:01)
[2018-02-21] MEDS: FAMOTIDINE 20 MG TAB PO SCH (10:01)
[2018-02-21 13:15] VITALS: BP 123/87
[2018-02-21 16:07] VITALS: BP 123/87
--- NOTE | 2018-02-21 16:07 | NUR ---
Discharge instructions given as ordered. Encourage to follow up with PMD as instructed. All questions and concerns addressed. Patient verbalized understanding. IV removed with catheter intact, pressure dressing applied. Patient ambulated to vehicle with all personal belongings, accompanied by staff and family member. No distress noted at time of departure.
== END 2018-02-21 16:07 | disposition home or self-care (01) ==
LOC: ER 18:46 → CENTRAL 23:02
PROVIDERS: ADMIT Nurse Practitioner; ATTEND Internal Medicine Pulmonary Disease
PROC: 0W993ZZ Drainage of Right Pleural Cavity, Percutaneous Approach (ICD-10-PCS; principal; 2018-02-10)
PROC: 0BJ08ZZ Inspection of Tracheobronchial Tree, Via Natural or Artificial Opening Endoscopic (ICD-10-PCS; 2018-02-20)
DX: K74.60 Unspecified cirrhosis of liver (principal); E43 Unspecified severe protein-calorie malnutrition; J90 Pleural effusion, not elsewhere classified; D69.6 Thrombocytopenia, unspecified; E83.51 Hypocalcemia; I10 Essential (primary) hypertension; M79.89 Other specified soft tissue disorders; R06.03 Acute respiratory distress; F17.210 Nicotine dependence, cigarettes, uncomplicated; Z82.49 Family history of ischemic heart disease and other diseases of the circulatory system; Z83.3 Family history of diabetes mellitus; Z86.73 Personal history of transient ischemic attack (TIA), and cerebral infarction without residual deficits; Z68.28 Body mass index [BMI] 28.0-28.9, adult
CPT/HCPCS: 10022; 36415; 71045; 71046; 71250; 71275; 76604; 76942; 80048; 80053; 81001; 82140; 83605; 83735; 83880; 83986; 84484; 85007; 85025; 85027; 85379; 85610; 85730; 87040; 87081; 87205; 89051; 93005; 93970; 93971; 94640; 94761; 96374; G0378; J0171; J0696; J2001; J2250

== ENCOUNTER 2019-12-13 17:05 | Observation (INO) | payer MEDICAID ==
[~2019-12-13] VITALS: Ht 154.9 cm; Wt 69.8 kg
[2019-12-13 18:11] LABS: Basophils # (auto) 0 10 ^3/uL (0-0.2); Eosinophils # (auto) 0.1 10 ^3/uL (0-0.8); Eosinophils % (auto) 2.4 % (0.0-7.0); Lymphocytes # (auto) 0.5 10 ^3/uL (0.4-5.4); Monocytes # (auto) 0.4 10 ^3/uL (0-1.3); Neutrophils # (auto) 1.9 10 ^3/uL (1.6-8.6); Nucleated Red Blood Cells % 0.1 %
[2019-12-13 18:13] LABS: Basophils % (auto) 1.1 % (0.0-2.0); Hematocrit 32.8 % (36.0-46.0); Hemoglobin 11.2 g/dL (12.2-16.2); Lymphocytes % (auto) 17.6 % (10.0-50.0); Mean Corpuscular Hemoglobin 32.2 pg (28.0-32.0); Mean Corpuscular Hgb Conc. 34.3 g/dL (32.0-36.0); Mean Corpuscular Volume 94.1 fL (80.0-100.0); Monocytes % (auto) 14.8 % (0.0-12.0); Neutrophils % (auto) 64.1 % (37.0-80.0); Platelet Count (auto) 46 10^3/uL (140-450); Red Blood Cells 3.49 10^6/uL (4.0-5.20); Red Cell Distribution Width 15.8 % (11.8-14.3)
[2019-12-13 18:26] LABS: Albumin 3.3 g/dL (3.4-5.0); Anion Gap 3 (5-15); Blood Urea Nitrogen 14 mg/dL (7-18); Calcium 8.3 mg/dL (8.5-10.1); Carbon Dioxide 25 mmol/L (21-32); Chloride 114 mmol/L (98-107); Glucose 82 mg/dL (74-106); Magnesium 2.5 mg/dL (1.6-2.6); Potassium 3.4 mmol/L (3.5-5.1); Sodium 142 mmol/L (136-145)
[2019-12-13 18:32] LABS: Alanine Aminotransferase 62 U/L (13-56); Alkaline Phosphatase 180 U/L (45-117); Aspartate Aminotransferase 69 U/L (15-37); BUN/Creatinine Ratio 20.9; GFR African American 116 mL/min; GFR Non-African American 96 mL/min; Total Protein 6.7 g/dL (6.4-8.2)
[2019-12-13] MEDS ORDERED: ONDANSETRON HCL 4 MG/2 ML VIAL IV PRN (19:30)
[2019-12-13] MEDS ORDERED: ACETAMINOPHEN 500 MG TAB PO PRN (19:30)
[2019-12-13 20:00] LABS: INR 1.07 (0.9-1.15); Partial Thromboplastin Time 24.4 sec (23.0-31.2)
[2019-12-13 20:01] LABS: Cholesterol 132 mg/dL (< 200); HDL Cholesterol 62 mg/dL (40-59); LDL Cholesterol 53 mg/dL (< 100); Triglycerides 130 mg/dL (< 150)
[2019-12-13] MEDS ORDERED: ATORVASTATIN 20 MG TAB PO SCH (22:00)
[2019-12-13] MEDS: LISINOPRIL 10 MG TAB PO SCH (23:31)
--- NOTE | 2019-12-14 01:18 | NUR ---
Telemetry admit from ER ARTUR DIA admitted to Telemetry unit after no SBAR received. Patient oriented to ISSA NICOLE, RN primary RN, unit, room, bed, and unit policies regarding patient care and visiting hours. Patient now on continuous telemetry monitoring, tele box # 70 and telemetry reading on arrival to unit is sinus rhythm at 82. Patient weighed by bed scale and encouraged to call if they need something. All questions and concerns addressed, patient verbalized understanding. Note: Patient provided specimen cup for ordered UA.
--- NOTE | 2019-12-14 01:20 | NUR ---
MEDICATION RECONCILIATION Patients reports that she is "suppose to be taking" aspirin, something for her cholesterol and a "little pink oval pill" for blood pressure. States that she is unaware of the names/dosage of the medications, as she has not been taking them for some time.
[2019-12-14 01:45] VITALS: BP 147/98
[2019-12-14 02:26] LABS: Urine WBC None Seen /hpf (0 - 5)
[2019-12-14] MEDS ORDERED: PNEUMOCOCCAL VACC POLYS 25 MCG/0.5 ML VIAL IM ONE (02:30)
--- NOTE | 2019-12-14 02:35 | NUR ---
SPECIMEN COLLECTION Urine sample walked to lab.
[2019-12-14 02:40] LABS: Urine Amorphous Crystal FEW /hpf (None Seen); Urine Bacteria NONE SEEN /hpf (None Seen); Urine Blood Negative /uL (Negative); Urine Specific Gravity 1.013 (1.001-1.035)
[2019-12-14 02:50] LABS: Amphetamine Screen, Urine NEGATIVE (NEGATIVE); Barbiturate Scree,Urine NEGATIVE (NEGATIVE); Benzodiazephine Screen, Urine NEGATIVE (NEGATIVE); Cannabinoid Screen, Urine NEGATIVE (NEGATIVE); Cocaine Screen, Urine NEGATIVE (NEGATIVE); Opiate Scree,Urine NEGATIVE (NEGATIVE); Phencyclidine Screen, Urine NEGATIVE (NEGATIVE)
[2019-12-14 06:00] VITALS: BP 121/74
--- NOTE | 2019-12-14 07:25 | NUR ---
Opening Shift Note Assumed care of patient, awake and alert. No S/S of distress/SOB or pain. Instructed on POC and to call for assist PRN. Bed locked in lowest position, side rails up x2, call light within reach. Safety precautions in place. Will continue to monitor for changes Q1hr and PRN
[2019-12-14] MEDS: LISINOPRIL 10 MG TAB PO SCH (09:44)
[2019-12-14] MEDS ORDERED: FAMOTIDINE 20 MG TAB PO SCH (10:00)
[2019-12-14] MEDS ORDERED: ASPirin-EC 81 mg tab PO SCH (10:00)
[2019-12-14 12:49] VITALS: BP 130/86
[2019-12-14] MEDS ORDERED: LISI-648 PO (14:31)
[2019-12-14] MEDS ORDERED: ASPI-543 PO (14:31)
[2019-12-14] MEDS ORDERED: FAMO-12 PO (14:31)
[2019-12-14 16:44] VITALS: BP 143/84
[2019-12-14 17:05] VITALS: BP 130/78
--- NOTE | 2019-12-14 18:10 | NUR ---
Patient refused PNA vaccine at this time. States she does not need it.
--- NOTE | 2019-12-14 18:20 | NUR ---
Discharge home Discharge instructions given as ordered. Encourage to follow up with PMD as instructed. All questions and concerns addressed. Patient verbalized understanding. Medication reconciliation form completed and copy given to patient. IV removed with catheter intact, pressure dressing applied. Telemetry unit returned to ICU. Patient taken to vehicle via wheelchair with all personal belongings, accompanied by staff. No distress noted at time of departure.
== END 2019-12-14 18:20 | disposition home or self-care (01) ==
LOC: ER 17:06 → INTOOBSV 17:07 → TELE 17:07 → TELE-WESTW 12-14 01:18
PROVIDERS: ADMIT Hospitalist; ATTEND Hospitalist
DX: G45.9 Transient cerebral ischemic attack, unspecified (principal); E78.5 Hyperlipidemia, unspecified; E87.6 Hypokalemia; I11.9 Hypertensive heart disease without heart failure; F17.210 Nicotine dependence, cigarettes, uncomplicated; E78.00 Pure hypercholesterolemia, unspecified; Z91.14 Patient's other noncompliance with medication regimen; Z90.89 Acquired absence of other organs; Z79.899 Other long term (current) drug therapy
CPT/HCPCS: 36415; 70450; 70545; 70551; 71045; 80053; 80061; 80307; 81001; 83036; 83735; 84484; 85025; 85379; 85610; 85730; 93005; 93306; 97163; 99285; G0378

== ENCOUNTER 2023-07-19 04:22 | Inpatient (IN) | payer MEDICARE, MEDICAID ==
[~2023-07-19] VITALS: Ht 154.9 cm; Wt 82.4 kg
[~2023-07-19 04:22] MED LIST: ASPI-543 PO; FAMO-12 PO; LISI10TA34 PO
[2023-07-19 05:14] LABS: Basophils # (auto) 0.1 10 ^3/uL (0-0.2); Eosinophils # (auto) 0.1 10 ^3/uL (0-0.8); Eosinophils % (auto) 1.8 % (0.0-7.0); Lymphocytes # (auto) 0.5 10 ^3/uL (0.4-5.4); Monocytes # (auto) 0.6 10 ^3/uL (0-1.3); Neutrophils # (auto) 3.9 10 ^3/uL (1.6-8.6); White Blood Cell 5.2 10^3/uL (4.4-10.8)
[2023-07-19 05:17] LABS: Hematocrit 30.9 % (36.0-46.0); Hemoglobin 10.3 g/dL (12.2-16.2); Mean Corpuscular Hemoglobin 29.3 pg (28.0-32.0); Mean Corpuscular Hgb Conc. 33.4 g/dL (32.0-36.0); Mean Corpuscular Volume 87.5 fL (80.0-100.0); Monocytes % (auto) 11.8 % (0.0-12.0); Neutrophils % (auto) 75.4 % (37.0-80.0); Red Blood Cells 3.53 10^6/uL (4.0-5.20); Red Cell Distribution Width 17.8 % (11.8-14.3)
[2023-07-19 05:20] LABS: Alanine Aminotransferase 59 U/L (7-40); Albumin 3.7 g/dL (3.2-4.8); Alkaline Phosphatase 99 U/L (46-116); Anion Gap 6 (5-15); Aspartate Aminotransferase 63 U/L (13-40); BUN/Creatinine Ratio 15.8 (10.0-20.0); Blood Urea Nitrogen 12 mg/dL (9-23); Calcium 9.5 mg/dL (8.5-10.1); Carbon Dioxide 23 mmol/L (20-30); Chloride 111 mmol/L (98-107); Glucose 128 mg/dL (74-106); Potassium 4.2 mmol/L (3.5-5.1); Sodium 140 mmol/L (136-145)
[2023-07-19 05:21] LABS: Bilirubin, Total 2.4 mg/dL (0.2-1.0); Total Protein 6.2 g/dL (5.7-8.2)
[2023-07-19 08:30] LABS: Erythrocyte Sedimentation Rate 14 mm/hr (0-20)
[2023-07-19 08:35] LABS: Urine Bacteria None Seen /hpf (None Seen)
[2023-07-19] MEDS: methylPREDNISolone SOD SUCC 125 MG/2 ML VL IV ONE (08:38)
[2023-07-19] MEDS: cefTRIAXone 1GM/50ML D5W 50 ML IV ONE (08:38)
[2023-07-19 08:44] LABS: Urine Blood Negative /uL (Negative); Urine Clarity Turbid (Clear); Urine Color Yellow (Yellow); Urine Mucus FEW (None Seen); Urine Protein, UAD TRACE (Negative); Urine Urobilinogen OVER mg/dL (Negative); Urine WBC 1 /hpf (0 - 5); Urine pH 5.5 (5.0-9.0)
[2023-07-19 09:11] LABS: Triglycerides 86 mg/dL (< 150)
[2023-07-19 09:12] LABS: LDL Cholesterol 50 mg/dL (< 100)
[2023-07-19 09:13] LABS: Cholesterol 100 mg/dL (< 200); HDL Cholesterol 32 mg/dL (40-59)
[2023-07-19] MEDS: IOHEXOL 350 MG/ML 100ML IJ ONE (09:15)
[2023-07-19] MEDS ORDERED: HYDROcodone-ACET 5/325MG TAB PO PRN ×2 (09:30→09:45)
[2023-07-19] MEDS ORDERED: ACETAMINOPHEN 325 MG TAB PO PRN ×5 (09:30→10:15)
[2023-07-19] MEDS ORDERED: MORPHINE SULFATE INJ 2 MG/ml SYRG IV PRN ×2 (09:30→09:45)
[2023-07-19] MEDS ORDERED: AMLO1TAB23 PO (09:43)
[2023-07-19] MEDS ORDERED: GAB100C PO (09:43)
[2023-07-19] MEDS ORDERED: ATOR10TA52 PO (09:43)
[2023-07-19] MEDS ORDERED: SPIR50TA5 PO (09:43)
[2023-07-19 09:45] VITALS: PULSE 88; RESP 23; O2SAT 98
[2023-07-19] MEDS ORDERED: ASPirin-EC 81 mg tab PO SCH (10:00)
[2023-07-19] MEDS ORDERED: ENOXAPARIN SOD 40 MG/0.4 ML SYRINGE SC SCH (10:00)
[2023-07-19] MEDS ORDERED: FAMOTIDINE 20 MG TAB PO SCH ×2 (10:00→10:15)
[2023-07-19] MEDS ORDERED: NICOTINE 7MG/24HR TOPICAL PATCH TD SCH (10:00)
[2023-07-19] MEDS ORDERED: PATIENTS OWN MEDICATION (Amlodipine Besylate 1 TAB) PO SCH ×2 (10:00→10:15)
[2023-07-19] MEDS ORDERED: PATIENTS OWN MEDICATION (Atorvastatin Calcium 1 TAB) PO SCH ×2 (10:00→10:15)
[2023-07-19] MEDS ORDERED: GABAPENTIN 100 MG CAP PO SCH (10:00)
[2023-07-19] MEDS ORDERED: PATIENTS OWN MEDICATION (Lisinopril 10 MG) PO SCH ×2 (10:00→10:15)
[2023-07-19] MEDS ORDERED: PATIENTS OWN MEDICATION (Spironolactone 1 TAB) PO SCH ×2 (10:00→10:15)
[2023-07-19 15:41] VITALS: PULSE 104; RESP 18
[2023-07-19 16:00] VITALS: BP 124/83; PULSE 104; RESP 20; TEMP 98.5; O2SAT 98
[2023-07-19 16:16] VITALS: BP 124/83; PULSE 104; RESP 16; O2SAT 96
[2023-07-19] MEDS: HYDROcodone-ACET 5/325MG TAB PO PRN (17:00)
[2023-07-19 20:10] VITALS: O2SAT 95
[2023-07-19 21:00] VITALS: BP 137/64; PULSE 96; RESP 18; TEMP 99.5; O2SAT 95
[2023-07-19] MEDS: FAMOTIDINE 20 MG TAB PO SCH (22:27)
[2023-07-19] MEDS: ATORVASTATIN 20 MG TAB PO SCH (22:27)
[2023-07-20] VITALS (7 sets, daily range): BP systolic 115–145; BP diastolic 56–93; PULSE 80–107; RESP 16–18; TEMP 97.7–98.6; O2SAT 94–99
[2023-07-20 06:42] LABS: Chloride 112 mmol/L (98-107); Potassium 3.8 mmol/L (3.5-5.1); Sodium 139 mmol/L (136-145)
[2023-07-20 06:43] LABS: Anion Gap 6 (5-15); Carbon Dioxide 21 mmol/L (20-30)
[2023-07-20 06:49] LABS: Blood Urea Nitrogen 15 mg/dL (9-23); Glucose 164 mg/dL (74-106)
[2023-07-20 06:52] LABS: Basophils # (auto) 0 10 ^3/uL (0-0.2); Eosinophils # (auto) 0 10 ^3/uL (0-0.8); Hematocrit 26.7 % (36.0-46.0); Hemoglobin 8.9 g/dL (12.2-16.2); Mean Corpuscular Hemoglobin 29.6 pg (28.0-32.0); Neutrophils # (auto) 5.6 10 ^3/uL (1.6-8.6)
[2023-07-20 06:56] LABS: Basophils % (auto) 0.7 % (0.0-2.0); Lymphocytes # (auto) 0.6 10 ^3/uL (0.4-5.4); Lymphocytes % (auto) 8.2 % (10.0-50.0); Mean Corpuscular Hgb Conc. 33.4 g/dL (32.0-36.0); Mean Corpuscular Volume 88.5 fL (80.0-100.0); Monocytes # (auto) 0.9 10 ^3/uL (0-1.3); Monocytes % (auto) 12.3 % (0.0-12.0); Neutrophils % (auto) 78.8 % (37.0-80.0); Red Blood Cells 3.02 10^6/uL (4.0-5.20); Red Cell Distribution Width 17.9 % (11.8-14.3); White Blood Cell 7.1 10^3/uL (4.4-10.8)
[2023-07-20] MEDS: NICOTINE 7MG/24HR TOPICAL PATCH TD SCH (09:34)
[2023-07-20] MEDS: LISINOPRIL 5 MG TAB PO SCH (09:35)
[2023-07-20] MEDS: amLODIPine BESYLATE 5 MG TAB PO SCH (09:35)
[2023-07-20] MEDS: ASPirin-EC 81 mg tab PO SCH (09:35)
[2023-07-20] MEDS: cefTRIAXone 1GM/50ML D5W 50 ML IV SCH (09:36)
[2023-07-20] MEDS: methylPREDNISolone SOD SUCC 125 MG/2 ML VL IV SCH (09:36)
[2023-07-20] MEDS: SPIRONOLACTONE 25 MG TAB PO SCH (09:36)
[2023-07-20] MEDS: GABAPENTIN 100 MG CAP PO SCH (09:37)
[2023-07-20] MEDS ORDERED: methylPREDNISolone SOD SUCC 125 MG/2 ML VL IV SCH (10:00)
[2023-07-20] MEDS ORDERED: ENOXAPARIN SOD 40 MG/0.4 ML SYRINGE SC SCH (10:00)
[2023-07-20 11:08] LABS: Anti-Centromere B Antibody <0.2 AI (0.0-0.9); Anti-Jo-1 Antibody <0.2 AI (0.0-0.9); Anti-dsDNA Antibody 2 IU/mL (0-9); Antichromatin Antibody <0.2 AI (0.0-0.9); Antiscleroderma-70 Antibody <0.2 AI (0.0-0.9); RNP Antibody <0.2 AI (0.0-0.9); Sjogren's Anti-SS-A Antibody <0.2 AI (0.0-0.9); Sjogren's Anti-SS-B Antibody <0.2 AI (0.0-0.9); Smith Antibody <0.2 AI (0.0-0.9)
[2023-07-21] VITALS (8 sets, daily range): BP systolic 122–141; BP diastolic 73–87; PULSE 71–93; RESP 12–19; TEMP 97.8–99.1; O2SAT 95–100
[2023-07-22] VITALS (8 sets, daily range): BP systolic 112–141; BP diastolic 52–85; PULSE 82–96; RESP 17–19; TEMP 97.6–98.7; O2SAT 94–97
[2023-07-22 10:07] LABS: Hepatitis B Surface Antigen Negative (Negative)
[2023-07-22 10:12] LABS: Hepatitis B Core Total AB Negative (Negative)
[2023-07-22 10:48] LABS: Hepatitis C Antibody Reactive (Negative)
[2023-07-22 10:49] LABS: Hepatitis A Total Antibody Negative (Negative); Hepatitis B Surface Antibody Negative (Negative); Hepatitis B Surface Antigen Negative (Negative); Hepatitis C Antibody Reactive (Negative)
[2023-07-23] VITALS (7 sets, daily range): BP systolic 110–147; BP diastolic 62–80; PULSE 72–84; RESP 16–20; TEMP 97.9–98.6; O2SAT 95–99
[2023-07-23 08:08] LABS: Basophils # (auto) 0 10 ^3/uL (0-0.2); Basophils % (auto) 0.1 % (0.0-2.0); Eosinophils # (auto) 0 10 ^3/uL (0-0.8); Eosinophils % (auto) 0.2 % (0.0-7.0); Hematocrit 29.4 % (36.0-46.0); Hemoglobin 9.7 g/dL (12.2-16.2); Lymphocytes # (auto) 0.6 10 ^3/uL (0.4-5.4); Lymphocytes % (auto) 10.8 % (10.0-50.0); Mean Corpuscular Hemoglobin 28.8 pg (28.0-32.0); Mean Corpuscular Volume 87.4 fL (80.0-100.0); Monocytes # (auto) 0.8 10 ^3/uL (0-1.3); Monocytes % (auto) 14.2 % (0.0-12.0); Neutrophils % (auto) 74.7 % (37.0-80.0); Red Blood Cells 3.37 10^6/uL (4.0-5.20); Red Cell Distribution Width 17.3 % (11.8-14.3); White Blood Cell 5.3 10^3/uL (4.4-10.8)
[2023-07-23 08:15] LABS: Chloride 110 mmol/L (98-107); Potassium 4.5 mmol/L (3.5-5.1); Sodium 140 mmol/L (136-145)
[2023-07-23 08:16] LABS: Anion Gap 5 (5-15); Carbon Dioxide 25 mmol/L (20-30)
[2023-07-23 08:22] LABS: Glucose 102 mg/dL (74-106)
[2023-07-23 08:23] LABS: BUN/Creatinine Ratio 19.2 (10.0-20.0); Blood Urea Nitrogen 14 mg/dL (9-23)
[2023-07-23 16:06] LABS: Antimyeloperoxidase (MPO) Ab <0.2 units (0.0-0.9); Antiproteinase 3 (PR-3) Ab <0.2 units (0.0-0.9)
[2023-07-23 16:21] LABS: INR 1.15 (0.9-1.15); Prothrombin Time 12.1 sec (9.3-11.8)
[2023-07-24] VITALS (8 sets, daily range): BP systolic 118–134; BP diastolic 67–85; PULSE 70–102; RESP 16–20; TEMP 97.6–99; O2SAT 95–97
[2023-07-24 06:57] LABS: INR 0.92 (0.9-1.15); Partial Thromboplastin Time < 20.0 SEC (24.5-34.5); Prothrombin Time 9.8 sec (9.3-11.8)
[2023-07-24 13:06] LABS: Cytoplasmic (C-ANCA) <1:20 titer (Neg:<1:20); Perinuclear (P-ANCA) <1:20 titer (Neg:<1:20)
[2023-07-25] VITALS (7 sets, daily range): BP systolic 113–142; BP diastolic 50–84; PULSE 76–91; RESP 16–20; TEMP 97.7–99; O2SAT 94–98
[2023-07-25] MEDS: GADOTERATE MEG 10 MMOL/20ml INJ (0.5MMOL/ml) IV ONE (11:24)
[2023-07-26] VITALS (8 sets, daily range): BP systolic 108–142; BP diastolic 59–86; PULSE 62–82; RESP 12–20; TEMP 97.4–98.6; O2SAT 96–99
[2023-07-27 05:00] VITALS: BP 111/68; PULSE 76; RESP 16; TEMP 98.3; O2SAT 94
[2023-07-27 06:13] LABS: Hemoglobin 10.6 g/dL (12.2-16.2)
[2023-07-27 06:16] LABS: Hematocrit 31.9 % (36.0-46.0); Mean Corpuscular Hemoglobin 28.5 pg (28.0-32.0); Mean Corpuscular Hgb Conc. 33.2 g/dL (32.0-36.0); Mean Corpuscular Volume 85.9 fL (80.0-100.0); Red Blood Cells 3.72 10^6/uL (4.0-5.20); Red Cell Distribution Width 17.3 % (11.8-14.3)
[2023-07-27 06:21] LABS: Basophils % (manual) 0 (0.0-2.0); Blast Cells 0; Eosinophils % (manual) 0 (0-7); Metamyelocytes % 0; Myelocytes % 0; Promyelocytes % 0; Reactive Lymphocytes 0
[2023-07-27 06:36] LABS: Alanine Aminotransferase 91 U/L (7-40); Albumin 3.3 g/dL (3.2-4.8); Alkaline Phosphatase 145 U/L (46-116); Anion Gap 2 (5-15); Aspartate Aminotransferase 58 U/L (13-40); BUN/Creatinine Ratio 23.1 (10.0-20.0); Bilirubin, Total 0.9 mg/dL (0.2-1.0); Blood Urea Nitrogen 24 mg/dL (9-23); Calcium 9.2 mg/dL (8.5-10.1); Carbon Dioxide 28 mmol/L (20-30); Chloride 107 mmol/L (98-107); Glucose 112 mg/dL (74-106); Potassium 4.8 mmol/L (3.5-5.1); Sodium 137 mmol/L (136-145); Total Protein 5.6 g/dL (5.7-8.2)
[2023-07-27 06:42] LABS: INR 1.14 (0.9-1.15); Partial Thromboplastin Time 21.7 SEC (24.5-34.5)
[2023-07-27 06:45] LABS: Band Neutrophils % (manual) 5; Lymphocytes % (manual) 17 (10.0-50.0); Monocytes % (manual) 10 (0-12); Platelet Estimate Decreased
[2023-07-27 08:35] VITALS: BP 129/74; PULSE 81; RESP 18; TEMP 98.3; O2SAT 97
[2023-07-27] MEDS: fentaNYL CITRATE 100 MCG/2 ML VL ONE (09:44)
[2023-07-27] MEDS: IODIXANOL 320MG/ML 100ML BTL IV ONE ×2 (09:45)
[2023-07-27] MEDS: LIDOCAINE 2%HCL (LOCAL ANESTH.) INJ 20ML MDV ONE (09:45)
[2023-07-27] MEDS: MIDAZOLAM HCL 2MG/2ML 2ml VIAL (1mg/ml) ONE (09:45)
[2023-07-27 12:30] VITALS: BP 95/58; PULSE 76; RESP 20; TEMP 98.2; O2SAT 97
[2023-07-27 16:35] VITALS: BP 107/64; PULSE 73; RESP 18; TEMP 98; O2SAT 97
[2023-07-27 20:00] VITALS: PULSE 89
[2023-07-27 21:00] VITALS: BP 120/71; PULSE 89; RESP 20; TEMP 98; O2SAT 95
[2023-07-28 08:30] VITALS: RESP 18
[2023-07-28 09:00] VITALS: BP 113/78; PULSE 82; RESP 16; TEMP 98.3; O2SAT 98
[2023-07-28 13:00] VITALS: BP 148/81; PULSE 82; RESP 16; TEMP 98.3; O2SAT 98
[2023-07-28 17:00] VITALS: BP 124/81; PULSE 85; RESP 16; TEMP 98.4; O2SAT 95
[2023-07-28 20:00] VITALS: PULSE 99; RESP 18
[2023-07-28 21:00] VITALS: BP 139/73; PULSE 99; RESP 18; TEMP 98.1; O2SAT 96
[2023-07-29 01:00] VITALS: BP 140/77; PULSE 92; RESP 18; TEMP 98.1; O2SAT 97
[2023-07-29 05:00] VITALS: BP 143/92; PULSE 71; RESP 18; TEMP 98; O2SAT 97
[2023-07-29 09:00] VITALS: BP 145/78; PULSE 82; RESP 18; TEMP 97.5; O2SAT 97
[2023-07-29 13:00] VITALS: BP 114/87; PULSE 90; RESP 16; TEMP 98.3; O2SAT 94
[2023-07-29 17:00] VITALS: BP 143/76; PULSE 79; RESP 14; TEMP 98.5; O2SAT 95
== END 2023-07-29 18:10 | disposition home or self-care (01) | DRG 271 ==
LOC: ER 04:22 → OVERFLOW 09:34 → ER 10:37 → EAST 15:20
PROVIDERS: ADMIT Registered Nurse; ATTEND Internal Medicine Geriatric Medicine
PROC: B4131ZZ Fluoroscopy of Splenic Arteries using Low Osmolar Contrast (ICD-10-PCS; principal; 2023-07-26)
PROC: 04V43DZ Restriction of Splenic Artery with Intraluminal Device, Percutaneous Approach (ICD-10-PCS; 2023-07-26)
PROC: B41J1ZZ Fluoroscopy of Other Lower Arteries using Low Osmolar Contrast (ICD-10-PCS; 2023-07-26)
DX: I72.8 Aneurysm of other specified arteries (principal); C22.0 Liver cell carcinoma; L03.115 Cellulitis of right lower limb; I69.351 Hemiplegia and hemiparesis following cerebral infarction affecting right dominant side; K76.6 Portal hypertension; L03.116 Cellulitis of left lower limb; K70.30 Alcoholic cirrhosis of liver without ascites; I77.6 Arteritis, unspecified; R06.09 Other forms of dyspnea; G62.9 Polyneuropathy, unspecified; R73.03 Prediabetes; D63.8 Anemia in other chronic diseases classified elsewhere; I10 Essential (primary) hypertension; E78.5 Hyperlipidemia, unspecified; F10.10 Alcohol abuse, uncomplicated; E66.9 Obesity, unspecified; B19.20 Unspecified viral hepatitis C without hepatic coma; F17.210 Nicotine dependence, cigarettes, uncomplicated; R16.1 Splenomegaly, not elsewhere classified; Y90.9 Presence of alcohol in blood, level not specified; K80.20 Calculus of gallbladder without cholecystitis without obstruction; Z68.34 Body mass index [BMI] 34.0-34.9, adult; Z71.3 Dietary counseling and surveillance; Z79.82 Long term (current) use of aspirin; Z79.899 Other long term (current) drug therapy; Z82.3 Family history of stroke; Z83.3 Family history of diabetes mellitus; Z82.49 Family history of ischemic heart disease and other diseases of the circulatory system; Z80.3 Family history of malignant neoplasm of breast
CPT/HCPCS: 36415; 71045; 71275; 74183; 75625; 76700; 76942; 80048; 80053; 80061; 80320; 81001; 82105; 83036; 83516; 83520; 83605; 83880; 84443; 85007; 85025; 85027; 85379; 85610; 85652; 85730; 86141; 86225; 86235; 86256; 86704; 86706; 86708; 86803; 86850; 86900; 86901; 87040; 87340; 93306; 93970; 96365; 96375; 97110; 97116; 97163; 97530; 99152; C1894; G0378; J2250; Q9967